=== PATIENT | male | born 1985 | race Caucasian/White ===

== ENCOUNTER 2022-01-19 18:55 | Day surgery (SDC) | payer BC, SELFPAY ==
[2022-01-19] VITALS (8 sets, daily range): BP systolic 124–147; BP diastolic 59–83; PULSE 60–95; RESP 16–18; TEMP 36.3–36.8; O2SAT 96–99; BMI 26.9
--- NOTE | ~2022-01-19 | XR_ITS ---
EXAMINATION: XR SOFT TISSUE NECK CLINICAL INDICATION: Foreign body COMPARISON: None TECHNIQUE: 2 views of the soft tissue neck were obtained. FINDINGS: Soft tissue films of the neck demonstrate a normal larynx, pharynx and upper trachea. No soft tissue swelling or opaque foreign body is demonstrated. XR/XR soft tissue neck IMPRESSION: Unremarkable examination.
--- NOTE | 2022-01-19 19:00 | ED.GENADULT ---
HPI - General Adult General Chief complaint: Skin/Abscess/Foreign Body <PAN Gamble - Last Filed: 01/19/22 19:08> Stated complaint: FB in throat <PAN Gamble - Last Filed: 01/19/22 19:08> Time Seen by Provider: 01/19/22 19:05 <PAN Gamble - Last Filed: 01/19/22 19:08> Source: patient <Meghan Gentile NP - Last Filed: 01/20/22 02:23> Mode of arrival: ambulatory <Meghan Gentile NP - Last Filed: 01/20/22 02:23> Limitations: no limitations <Meghan Gentile NP - Last Filed: 01/20/22 02:23> History of Present Illness HPI narrative: 36-year-old male presents for plastic piece of dental floss of being stuck in his esophagus. Plastic piece was stuck in his esophagus about an hour prior to arrival. <Meghan Gentile NP - Last Filed: 01/20/22 02:23> Onset (ago): hour(s) (Within the hour of arrival) <Meghan Gentile NP - Last Filed: 01/20/22 02:23> Location: neck <Meghan Gentile NP - Last Filed: 01/20/22 02:23> Radiation: non-radiation <Meghan Gentile NP - Last Filed: 01/20/22 02:23> Severity: moderate <Meghan Gentile NP - Last Filed: 01/20/22 02:23> Severity scale (1-10): 5 <Meghan Gentile NP - Last Filed: 01/20/22 02:23> Quality: stabbing <Meghan Gentile NP - Last Filed: 01/20/22 02:23> Pain Consistency: intermittent <Meghan Gentile NP - Last Filed: 01/20/22 02:23> Exacerbating factors: other (Swallowing) <Meghan Gentile NP - Last Filed: 01/20/22 02:23> Associated symptoms: denies other symptoms <Meghan Gentile NP - Last Filed: 01/20/22 02:23> Related Data Allergies/adverse reactions: Allergies Allergy/AdvReac Type Severity Reaction Status Date / Time No Known Allergies Allergy Verified 01/19/22 19:03 <PAN Gamble - Last Filed: 01/19/22 19:08> Review of Systems Review of Systems: Constitutional: No Fever, No Chills ENT/Mouth: Foreign body sensation in esophagus Cardiovascular: No Chest Pain, No SOB Respiratory: No Cough, No Dyspnea Gastrointestinal: No Nausea, No Vomiting, No Diarrhea, No abdominal Pain Genitourinary: No Dysuria, No Hematuria Musculoskeletal: No joint pain, No Myalgias, No Joint Swelling Skin: No Skin lacerations, No rash Neuro: No Weakness, No Numbness, No Paresthesias, No Loss of Consciousness, No Dizziness, No Headache <Meghan Gentile NP - Last Filed: 01/20/22 02:23> Yes all other systems are reviewed and are negative <Meghan Gentile NP - Last Filed: 01/20/22 02:23> [facility] Past Medical History Attestation statement: The following information was validated with the patient. <Meghan Gentile NP - Last Filed: 01/20/22 02:23> Source: old records reviewed <Meghan Gentile NP - Last Filed: 01/20/22 02:23> Social History Social History: Social History Advance Directives: No Advance Directives Information Provided: No <PAN Gamble - Last Filed: 01/19/22 19:08> Physical Exam ED Vital Signs: Vital Signs - 24 hr 01/19/22 19:00 01/19/22 20:00 01/19/22 21:26 Temperature 98.3 F 98.2 F 97.3 F Pulse Rate 69 60 60 Respiratory Rate 18 16 16 Blood Pressure 147/70 H 137/83 124/74 Pulse Oximetry 98 98 98 Oxygen Delivery Method Room Air Room Air Room Air Oxygen Flow Rate 01/19/22 23:05 01/19/22 23:10 01/19/22 23:15 Temperature 97.4 F Pulse Rate 95 93 86 Respiratory Rate 16 16 16 Blood Pressure 132/59 L 138/66 131/70 Pulse Oximetry 99 96 97 Oxygen Delivery Method Nasal Cannula Room Air Room Air Oxygen Flow Rate 4 01/19/22 23:19 01/19/22 23:33 Temperature 98 F 97.4 F Pulse Rate 75 67 Respiratory Rate 16 16 Blood Pressure 130/74 131/69 Pulse Oximetry 98 98 Oxygen Delivery Method Room Air Room Air Oxygen Flow Rate BMI result Body Mass Index 26.9 <PAN Gamble - Last Filed: 01/19/22 19:08> Vital Signs - 24 hr 01/19/22 19:00 01/19/22 20:00 01/19/22 21:26 Temperature 98.3 F 98.2 F 97.3 F Pulse Rate 69 60 60 Respiratory Rate 18 16 16 Blood Pressure 147/70 H 137/83 124/74 Pulse Oximetry 98 98 98 Oxygen Delivery Method Room Air Room Air Room Air Oxygen Flow Rate 01/19/22 23:05 01/19/22 23:10 01/19/22 23:15 Temperature 97.4 F Pulse Rate 95 93 86 Respiratory Rate 16 16 16 Blood Pressure 132/59 L 138/66 131/70 Pulse Oximetry 99 96 97 Oxygen Delivery Method Nasal Cannula Room Air Room Air Oxygen Flow Rate 4 01/19/22 23:19 01/19/22 23:33 Temperature 98 F 97.4 F Pulse Rate 75 67 Respiratory Rate 16 16 Blood Pressure 130/74 131/69 Pulse Oximetry 98 98 Oxygen Delivery Method Room Air Room Air Oxygen Flow Rate BMI result Body Mass Index 26.9 <Meghan Gentile NP - Last Filed: 01/20/22 02:23> Appearance: Alert. Oriented X3. No acute distress. Eyes: Pupils equal, round and reactive to light. ENT: Pharynx normal. Neck: Normal inspection. Neck supple. No tracheal stridor. CVS: Normal heart rate and rhythm. Pulses normal. Respiratory: No respiratory distress. Breath sounds normal. Abdomen: Soft and nontender. Skin: Skin warm and dry. Normal skin color. Normal skin turgor. Extremities: Gait well-balanced well coordinated.. Neuro: No motor deficit. No sensory deficit. Cranial nerves 2-12 intact. <Meghan Gentile NP - Last Filed: 01/20/22 02:23> Course Course Course Narrative: 1900 36 year old male presents with foreign body sensation throat, tells me there is a piece of floss or stuck in his throat, this happened just prior to arrival. Patient's last meal was about a 1 hour ago. Physical examination benign. Patient appears well. No stridor. Plan at this time x-ray soft tissues neck, although unlikely that foreign body will be visualized. Will have him swish with carbonated beverage to see if foreign body sensation resolves. However likely will need GI. <PAN Gamble - Last Filed: 01/19/22 19:08> 1900 36 year old male presents with foreign body sensation throat, tells me there is a piece of floss or stuck in his throat, this happened just prior to arrival. Patient's last meal was about a 1 hour ago. Physical examination benign. Patient appears well. No stridor. Plan at this time x-ray soft tissues neck, although unlikely that foreign body will be visualized. Will have him swish with carbonated beverage to see if foreign body sensation resolves. However likely will need GI. 19:08 discussion with Gastroenterology, Dr. Martínez. Will give glucagon. CT scan of neck not indicated at this time 20:30 Dr. Martínez at bedside. Plan of care is for emergent endoscopy <Meghan Gentile NP - Last Filed: 01/20/22 02:23> Consultations Consultation #1: Mauricio, at bedside <Meghan Gentile NP - Last Filed: 01/20/22 02:23> Time: 20:30 <Meghan Gentile NP - Last Filed: 01/20/22 02:23> Medications Administered Discontinued Medications Generic Name Dose Route Start Last Admin Trade Name Freq PRN Reason Stop Dose Admin Glucagon 1 mg 01/19/22 19:05 01/19/22 19:23 Glucagon,Human Recombinant 1 Mg/Ml Vial IVPUSH 01/19/22 19:06 1 mg ONCE ONE Administration <PAN Gamble - Last Filed: 01/19/22 19:08> Medications Administered Discontinued Medications Generic Name Dose Route Start Last Admin Trade Name Freq PRN Reason Stop Dose Admin Glucagon 1 mg 01/19/22 19:05 01/19/22 19:23 Glucagon,Human Recombinant 1 Mg/Ml Vial IVPUSH 01/19/22 19:06 1 mg ONCE ONE Administration <Meghan Gentile NP - Last Filed: 01/20/22 02:23> Medical Decision Making Medical Decision Making Differential Diagnoses: Differential diagnosis (Foreign body, esophageal trauma) <QUAN Lion Last Filed: 01/20/22 02:23> Consideration of admission/observation: Consideration of Admission/Observation (Will be determined status post endoscopy) <Meghan Gentile NP - Last Filed: 01/20/22 02:23> Discussion of management with other physician/healthcare provider/other source (e.g., hospitalist, advanced manufacturing consultant, behavioral health): Discussion w/other physician/healthcare provider (Martínez, gastroenterology) Management of the patient was discussed with: Digital Marketing Consultant My interpretation is <QUAN Lion Last Filed: 01/20/22 02:23> Lab Attestation: I reviewed the patient's lab results. <QUAN Lion Last Filed: 01/20/22 02:23> Discussion of test interpretation with radiology: Discussion of test interpretation with radiology (Soft tissue neck x-ray) EXAMINATION: XR SOFT TISSUE NECK CLINICAL INDICATION: Foreign body COMPARISON: None TECHNIQUE: 2 views of the soft tissue neck were obtained.? FINDINGS: Soft tissue films of the neck demonstrate a normal larynx, pharynx and upper trachea. No soft tissue swelling or opaque foreign body is demonstrated. XR/XR soft tissue neck IMPRESSION: Unremarkable examination. <QUAN Lion Last Filed: 01/20/22 02:23> Tests considered but not performed: Tests Considered But Not Performed (CT soft tissue neck) Discussion with Gastroenterology, not indicated, patient will go to OR for emergent endoscopy <Meghan Gentile NP - Last Filed: 01/20/22 02:23> Discharge Plan Discharge Clinical Impression: Esophageal foreign body Qualifiers: Encounter type: initial encounter Qualified Code(s): T18.108A - Unspecified foreign body in esophagus causing other injury, initial encounter <PAN Gamble - Last Filed: 01/19/22 19:08> Patient Disposition: Admitted as Observation <PAN Gamble - Last Filed: 01/19/22 19:08> Interventions: Admission Worksheet (ED) Last Done: 01/19/22 21:38 <PAN Gamble - Last Filed: 01/19/22 19:08> Discharge Date/Time: 01/19/22 22:25 <PAN Gamble - Last Filed: 01/19/22 19:08>
--- NOTE | 2022-01-19 19:31 | PC.NURSE ---
attempted to swish nabil lupe to relieve symptoms, no relief
[2022-01-19 20:35] LABS: COVID-19 Test Negative (Negative); IDNOW Serial# 55D5AD1C
[2022-01-19 20:36] LABS: IDNOW Serial# 9DB6401D; Influenza A Negative (Negative); Influenza B2 Negative (Negative)
--- NOTE | 2022-01-19 21:03 | MHC.SHP ---
Pre-Procedural Eval Section A Date of Service: 01/19/22 The patient is an INPATIENT: No The History & Physical has been completed within 30 days and I have reviewed it.: Yes Section B Chief Complaint: FB in throat Allergies: Allergies Allergy/AdvReac Type Severity Reaction Status Date / Time No Known Allergies Allergy Verified 01/19/22 19:03 Plan I have reviewed the history and physical and performed a pertinent physical examination on my patient. No changes have occurred unless specified.
--- NOTE | 2022-01-19 21:03 | PM.EVENT ---
Event Note Date of Service: 01/19/22 Event Note: GI Consult-Full note dictated Imp: ? of esophageal foreign body vs. oropharyngeal foreign body vs. just a foreign body sensation. Rec: Upper endoscopy this evening for further evaluation. Full consent obtained for this, including risks of bleeding and perforation. The patient is comfortable with this plan. Thanks Time Spent With Patient Time: Total time managing care of this patient today ____ minutes.
--- NOTE | 2022-01-19 21:07 | PC.NURSE ---
pt belongings bagged and accounted for with PCT Nerupa, pt reminded to take all clothes off
--- NOTE | 2022-01-19 22:13 | P.CONAN_ITS ---
[facility] Active Problems Active Problems: All Active Problems (Updated 01/19/22 @ 21:47 by Stephanie Maharaj) Esophageal foreign body (Acute) Family History Family history of problems with anesthesia: No Surgical History History of Problems with Anesthesia: No Social History Social History Advance Directives: No Advance Directives Information Provided: No Meds Allergies Allergy/AdvReac Type Severity Reaction Status Date / Time No Known Allergies Allergy Verified 01/19/22 19:03 Exam Exam Date and Time: January 19, 20222212 Height,Weight and Vital Signs: Height 6 ft 2 in Weight 95.254 kg Last Vital Signs Temp 97.3 F 01/19/22 21:26 Pulse 60 01/19/22 21:26 Resp 16 01/19/22 21:26 BP 124/74 01/19/22 21:26 Pulse Ox 98 01/19/22 21:26 O2 Del Method 01/19/22 21:26 Pertinent Lab Results Pertinent Lab Results: Laboratory Tests 01/19/22 01/19/22 20:07 20:07 COVID-19 ([facility]) Negative COVID-19 Clin Com See Note Influenza Type A ([facility]) Negative Influenza Type B ([facility]) Negative Influenza A & B Note See Note Airway Mallampati Class: I TM Dist: >3cm Neck ROM: Full Assessment and Plan Assessment Anesthesia Assessment: Anesthesia Plan Discussed and Chart Reviewed Final Anesthetic Review Family History of Problems with Anesthesia: No History of Problems with Anesthesia: No NPO: Yes (6 hrs ago) ASA Class: II Final Preanesthetic Review: No Changes in Pt Med Stat, Meds/Allgs Chart Reviewed, Consent Obtained/Reviewed and Anes Risks/Benef Reviewed Patient Risk: Low Procedure Risk: Low Anesthetic Plan Anesthetic Plan: GA Disposition: Standard PACU
--- NOTE | 2022-01-19 22:53 | P.BOP_ITS ---
Brief Operative Note Date of Service: 01/19/22 Pre-op diagnosis: Foreign body sensation in throat/esophagus Post-op diagnosis: other (Same, No foreign body seen, GERD) Procedure: Esophagoscopy Surgeon: Meek Martínez Anesthesia: JOSEFAA Was an Manual Arts Teacher used for this Procedure?: No Estimated blood loss (mL): 0 Pathology: none sent Condition: stable Disposition: PACU
--- NOTE | 2022-01-19 23:40 | OP_ITS ---
SURGEON: Meek Martínez MD INDICATIONS: The patient presents for evaluation of question of foreign body in the throat or esophagus. Full consent has been obtained from him for this, including risks of bleeding and perforation. PREOPERATIVE DIAGNOSIS: Question of esophageal or throat foreign body. POSTOPERATIVE DIAGNOSIS: PROCEDURE PERFORMED: Esophagoscopy ESTIMATED BLOOD LOSS: COMPLICATIONS: ANESTHESIA: General anesthesia. ASSISTANTS: SPECIMENS: POSTOPERATIVE DIAGNOSES: Question of esophageal or throat foreign body, negative exam for foreign body, reflux. DESCRIPTION OF PROCEDURE: The patient was placed in the supine position. The Olympus video gastroscope was passed in the posterior oropharynx. I did not visualize any foreign body. The esophagus was intubated easily. The entire esophagus from the upper esophageal sphincter to the gastroesophageal junction was carefully inspected with insufflation of air and no evidence of foreign body was visualized. There was some erythema at the gastroesophageal junction consistent with reflux. The scope did enter the stomach, but immediately encountered a large amount of food, and therefore the scope was withdrawn back into the esophagus. The scope was slowly withdrawn assessing all mucosal surfaces carefully. Again, there was no evidence of any esophageal foreign body. After the scope was withdrawn from the esophagus into the pharyngeal area I did spend time inspecting the oropharynx as carefully as possible. I did not visualize any foreign body. I did obtain what I think was good inspection of the piriform sinuses and I did not visualize any foreign body there either. The scope was withdrawn from the patient. He tolerated the procedure well and was returned to the recovery area in stable condition. IMPRESSION: Gastroesophageal reflux, otherwise normal esophagoscopy without any sign of foreign body in the throat nor esophagus. PLAN: The patient will be observed and discharged this evening from the PACU if stable. I do feel the tiny piece of plastic that broke off the dental floss instrument he was using either was swallowed and will pass spontaneously given its tiny size, or perhaps he was able to spit it out without realizing it. In any event, I advised him to observe things. I did advise him that if this sensation continues to bother him he should follow up with his primary care provider and obtain a referral to an ENT physician. He will see me on a p.r.n. basis. This has all been discussed with his as well. He was given written instructions in this regard as well. MD DOM Powell/AGATA / [id number] CEDRIC
--- NOTE | 2022-01-20 00:35 | CONS_ITS ---
DATE OF SERVICE: 01/19/2022 REASON FOR CONSULTATION: Foreign body sensation in oropharynx or esophagus. HISTORY OF PRESENT ILLNESS: The patient is a 36-year-old healthy male who describes that he was flossing his teeth with a plastic instrument earlier today. He did have the dental instrument with him and showed me where a small piece, just several millimeters in length, snapped off. He felt it go into his throat area causing some gagging. Subsequent to that he has had a persistent sensation of discomfort at the lower right side of his neck area, above his clavicle. He feels that there is still the small piece of plastic in either his esophagus or the back of his throat. He has been able to swallow secretions and liquids without difficulty. He denies any breathing issues. He does describe a similar-type situation about 7 or 8 years ago in which a small plastic piece of a beverage container snapped off in his mouth while he was trying to open it. He felt that he always had a foreign body sensation in the same general area and years later describes coughing up a piece of plastic. In any event, he did come to the ER and a soft tissue x-ray of the neck does not show any sign of a foreign body. He did receive some glucagon intravenously without any relief. Again, he has been able to swallow saliva and even a little water without difficulty. However, the discomfort in that area persists and he is concerned about it. Prior to today, he was eating very comfortably and denies any chronic dysphagia, heartburn, nor odynophagia. He denies any chronic abdominal pain. His bowel movements have been regular. There has been no bleeding. MEDICATIONS: At home, none. PAST MEDICAL HISTORY: Foot surgery. He denies any history of heart disease, diabetes, stroke, lung disease, or kidney disease. 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 He is . He does not smoke nor use any significant amounts of alcohol. FAMILY HISTORY: Noncontributory. REVIEW OF SYSTEMS: CONSTITUTIONAL: In general, he feels very well with good appetite and good energy. SKIN: No rash, no pruritus. CARDIAC: No chest pain. PULMONARY: No cough, no hemoptysis. GI: As above. PHYSICAL EXAMINATION: GENERAL: The patient is a pleasant, alert, comfortable appearing male, in no distress. SKIN: Warm and dry. NECK: Supple. There is no lymphadenopathy nor crepitus. There is no focal tenderness. CHEST: Clear. CARDIAC: Normal S1, S2. There is no chest wall tenderness nor crepitus. ABDOMEN: Soft, nondistended, nontender. IMAGING DATA: Soft tissue neck x-ray is negative. COVID and influenza are negative. IMPRESSION: Given the tiny piece of plastic that seems to have snapped off this piece of dental floss equipment and his continued problems with this foreign body sensation, that may indicate that the piece of plastic is still lodged in either the proximal esophagus or perhaps the oropharyngeal area. I did explain to him that this may very well simply represent a foreign body sensation and that he either swallowed the small piece of plastic or perhaps spit it out without realizing. In any event, since it is bothering him so much and he is worried about it, he will undergo an upper endoscopy with general anesthesia so we can inspect the oropharynx and esophagus area. Full consent has been obtained from him for this, including risks of bleeding and perforation. He is very comfortable with this plan. Thank you for the consultation. MD DOM Powell/AGATA / [id number] MTDKaitlin
== END 2022-01-19 23:37 | disposition home or self-care (01) ==
LOC: HO.ED 21:42 → HO.SSS 21:47
PROVIDERS: Internal Medicine; Emergency Provider Emergency Medicine; Visit Provider Nurse Practitioner Family
PROC: 0DJ08ZZ Inspection of Upper Intestinal Tract, Via Natural or Artificial Opening Endoscopic (ICD-10-PCS; CPT 43235; principal; 2022-01-19 22:00)
DX: R09.89 Other specified symptoms and signs involving the circulatory and respiratory systems (principal); K21.9 Gastro-esophageal reflux disease without esophagitis; Z20.822 Contact with and (suspected) exposure to COVID-19
CPT/HCPCS: 43235; 70360; 87502; 87635; 99285; J1100; J1610; J2250; J2405

== ENCOUNTER 2023-09-14 22:23 | Emergency (ER) | payer BC, SELFPAY ==
[2023-09-14 22:36] VITALS: BP 137/87; PULSE 86; RESP 16; TEMP 37; O2SAT 99; BMI 25.7
== END 2023-09-15 01:35 | disposition left against medical advice (07) ==
LOC: HO.ED 09-15 01:24
PROVIDERS: Emergency Provider Emergency Medicine; PCP Internal Medicine
DX: R07.0 Pain in throat (principal)
CPT/HCPCS: 99281